=== PATIENT | male | born 1965 | race African-American/Black ===

== ENCOUNTER 2020-02-17 14:08 | Outpatient (CLI) | payer BC, SELFPAY ==
--- NOTE | ~2020-02-17 | XR_ITS ---
EXAMINATION: XR chest 2V DATE: 02/17/2020 15:31 INDICATION: Prediabetic with prostate cancer for preoperative evaluation. TECHNIQUE: PA and lateral views of the chest were obtained. COMPARISON: None FINDINGS: The lungs are clear with no focal airspace opacities, pulmonary edema, pleural effusion or pneumothor ax. The cardiomediastinal silhouette is normal. Mild anterior wedging of a few mid thoracic vertebral bodies. Mild thoracic spondylosis. IMPRESSION: 1. No acute cardiopulmonary disease. Reviewed, dictated and finalized at location A.
--- NOTE | 2020-02-17 15:04 | ECG_ITS ---
Measurements Intervals [place] Rate: 66 P: 49 MN: 182 QRS: 48 QRSD: 85 T: 27 QT: 359 QTc: 377 Interpretive Statements SINUS RHYTHM DELAYED PRECORDIAL R/S TRANSITION BASELINE ARTIFACT- I, II, III, AVL, AVF BORDERLINE ECG Electronically Signed On 02-17-2020 19:32:16 CDT by Donnell Moraes D.O.
[2020-02-17 15:35] LABS: Basophils Absolute Auto 0.1 K/mm3 (0.0-0.1); Basophils Percent Auto 0.6 % (0.2-1.2); Eosinophils Absolute Auto 0.1 K/mm3 (0-0.3); Eosinophils Percent Auto 1.4 % (0-4.4); Hematocrit 38.2 % (42.0-52.0); Hemoglobin 12.7 g/dL (14.0-18.0); Immature Granulocyte Absolute 0.02 K/mm3 (0.00-0.031); Immature Granulocyte Percent A 0.2 % (0-0.5); Lymphocytes Absolute Auto 2.19 K/mm3 (0.9-3.2); Lymphocytes Percent Auto 26.9 % (18.3-44.2); Mean Corpuscular HGB Conc 33.2 g/dl (32-36); Mean Corpuscular Hemoglobin 23.5 pg (26-34); Mean Corpuscular Volume 70.6 fl (80-100); Mean Platelet Volume 10.6 fl (7.4-10.4); Monocytes Absolute Auto 0.9 K/mm3 (0.1-0.6); Monocytes Percent Auto 11.1 % (2.6-8.5); Neutrophils Absolute Auto 4.9 K/mm3 (1.3-6.7); Neutrophils Percent Auto 59.8 % (45.5-73.1); Platelet Count Result 263 k/mm3 (150-375); Red Blood Count 5.41 M/mm3 (4.6-6.20); Red Cell Distribution Width 15.3 % (11.5-14.5); White Blood Count 8.1 K/mm3 (4.5-10.0)
[2020-02-17 15:41] LABS: Add Urine Microscopic? YES; Appearance Urine Clear (Clear); Bilirubin Urine Negative (Negative); Blood Urine Negative (Negative); Color Urine Yellow (Yellow); Glucose Urine UA Negative (Negative); Ketones Urine Negative (Negative); Leukocyte Esterase Ur Negative LEU/UL (Negative); Mucus Urine Rare /lpf; Nitrate Urine Negative (Negative); Protein Urine 1+ mg/dL (Negative); Specific Grav Ur 1.027 (1.001-1.035); Squamous Epithelial Cell Urine Rare /hpf (Few); WBC Urine 0-3 /hpf
[2020-02-17 15:42] LABS: INR 1.1; Prothrombin Time 13.4 Seconds (11.1-14.7)
[2020-02-17 15:43] LABS: Partial Thromboplastin Time 29.5 SECONDS (22.3-36.8)
[2020-02-17 15:47] LABS: Alanine Aminotransferase 25 U/L (4-50); Albumin Level 4.5 g/dL (3.5-5.1); Alkaline Phosphatase 76 U/L (38-126); Anion Gap 8 mmol/L (8-16); Aspartate Amino Transferase 29 U/L (17-59); Bilirubin,Total 0.4 mg/dL (0.2-1.3); Blood Urea Nitrogen 13 mg/dL (9-20); Carbon Dioxide 30 mmol/L (22-30); Chloride 102 mmol/L (98-107); Estimated Glomerular Filt Rate > 60; Glucose 127 mg/dL (75-110); Potassium 3.8 mmol/L (3.4-5.0); Sodium 140 mmol/L (137-145)
== END 2020-02-17 14:09 | disposition home or self-care (01) ==
PROVIDERS: PCP Internal Medicine; Visit Provider Urology
DX: C61 Malignant neoplasm of prostate (principal); R94.31 Abnormal electrocardiogram [ECG] [EKG]
CPT/HCPCS: 36415; 71046; 80053; 81001; 85025; 85610; 85730; 86850; 86900; 86901; 93005

== ENCOUNTER 2020-02-28 03:15 | Outpatient (CLI) | payer BC, SELFPAY ==
[2020-02-28 18:37] LABS: SARS-CoV-2 RNA PCR Negative
== END 2020-02-28 03:16 | disposition home or self-care (01) ==
LOC: ANHCOVIDDT 03:15
PROVIDERS: PCP Internal Medicine; Visit Provider Urology
DX: Z01.812 Encounter for preprocedural laboratory examination (principal); Z20.828 Contact with and (suspected) exposure to other viral communicable diseases
CPT/HCPCS: 87635; C9803; U0003

== ENCOUNTER 2020-03-01 01:03 | Day surgery (SDC) | payer BC, SELFPAY ==
[2020-02-17 14:54] VITALS: BP 119/82; PULSE 74; RESP 16; TEMP 37; O2SAT 98; BMI 34.4
[2020-03-01] VITALS (14 sets, daily range): BP systolic 92–142; BP diastolic 48–82; PULSE 59–89; RESP 12–20; TEMP 35.9–36.9; O2SAT 97–100
--- NOTE | 2020-03-01 06:40 | P.PNAN_ITS ---
Anes - Initial Pre Proc Eval Procedure: Operation Date: 03/01/20 07:30 Proposed Procedures p Robotic Assisted Laparoscopic Prostatectomy With Bilateral Pelvic Lymph Node Dissection - Cj Gibbs MD Date/Time: 03/01/20 06:40 Surgeon: Cj Gibbs MD Pre Op Diagnosis: Prostate Ca Patient Data Age: 54 Gender: M Height: 5 ft 10 in Weight: 109.1 kg Last Vital Signs Temp 37.0 C 02/17/20 14:54 Pulse 74 02/17/20 14:54 Resp 16 02/17/20 14:54 BP 119/82 02/17/20 14:54 Pulse Ox 98 02/17/20 14:54 Allergies Allergy/AdvReac Type Severity Reaction Status Date / Time No Known Allergies Allergy Verified 02/17/20 14:26 Home Medications Medication Instructions Recorded Confirmed Type metformin 500 mg PO BID 02/17/20 02/17/20 History vitamin E 400 unit PO DAILY 02/17/20 02/17/20 History Patient hx anesthesia problems: none Family hx anesthesia problems: none [facility] Past Medical History Medical History (Updated 03/01/20 @ 06:40 by Panfilo Larios MD) Diabetes Obesity Prostate CA Surgical History Surgical History (Updated 03/01/20 @ 06:40 by Panfilo Larios MD) H/O arthroscopic knee surgery Social History Social History Smoking status: Never smoker Living arrangements: with family Spiritual care concerns: No Anes - Eval Final PreProcedure Day of Procedure 03/01/20 06:40 Patient weight: obese Heart: regular rate and rhythm Lungs: clear to auscultation Airway: Mallampati scale class III Neurological: alert and oriented Last oral intake: >/= 8 hours ASA classification: III Emergent: no Anesthetic plan: proceed Anesthesia type and monitoring: general ETT and standard monitoring Informed Consent: The patient's anesthetic plan and its attendant risks and benefits were discussed with the patient/family/POA. Questions were solicited and answers provided to the satisfaction of the patient/family/POA.
--- NOTE | 2020-03-01 06:41 | PM.IMHP ---
H&P: HPI History of Present Illness Date/Time: 03/01/20 06:41 Chief complaint: Prostate Ca Narrative: Mateus Cochran is a 54 year old male with Carlos 3+4=7 prostate cancer, last PSA 4.1 ng/mL. He has a family history of prostate cancer, his father was diagnosed in his mid 60 and is alive after treatment in his early 80s. He denies LUTS or other symptoms of prostate cancer. He denies abdominal surgeries in the past. Review of Systems Constitutional: Constitutional: Reports as per HPI and Reports no additional constitutional complaints Eyes: Eyes: Reports no additional eye complaints, Denies blind spots and Denies blurry vision ENT: Reports system reviewed and no additional complaints, except as documented and Reports Normal hearing present Cardiovascular: Cardiovascular: Reports no additional cardiovascular complaints Respiratory: Respiratory: Reports no additional respiratory complaints Gastrointestinal: Gastrointestinal: Reports no additional gastrointestinal complaints Genitourinary: Genitourinary: Reports no additional male genitourinary complaints Musculoskeletal: Musculoskeletal: Reports no additional musculoskeletal complaints Neurologic: Reports system reviewed and no additional complaints, except as documented Psychiatric: Psychiatric: Reports no additional psychiatric complaints Endocrine: Endocrine: Reports no additional endocrine complaints Hematologic/Lymphatic: Hematologic/Lymphatic: Reports no additional hematologic/lymphatic complaints Allergic/Immunologic: Allergic/Immunologic: Reports no additional allergic/immunologic complaints [facility] Past Medical History Medical History Diabetes Obesity Prostate CA Surgical History Surgical History H/O arthroscopic knee surgery Social History Social History Smoking status: Never smoker Living arrangements: with family Spiritual care concerns: No Meds Home Medications and Allergies Home Medications Medication Instructions Recorded Confirmed Type metformin 500 mg PO BID 02/17/20 02/17/20 History vitamin E 400 unit PO DAILY 02/17/20 02/17/20 History Allergies Allergy/AdvReac Type Severity Reaction Status Date / Time No Known Allergies Allergy Verified 02/17/20 14:26 Exam Const: General: cooperative, healthy appearing, comfortable, no acute distress, well developed, alert, awake and Physically active; No acute distress HENMT: Head: normal to inspection, normocephalic and atraumatic Ears: hearing grossly normal bilaterally General nose exam: Normal external nose present Face and sinus: normal facial exam Eyes: General: appearance normal, both eyes and all related structures Chest: Chest palpation & inspection: normal inspection of the chest Resp: Effort & Inspection: normal respiratory effort, able to speak in complete sentences, normal respiratory pattern and no audible wheezes GI: Inspection: normal to inspection and non-distended Neuro: General: oriented to person, oriented to place, oriented to time, patient oriented x3 and No gait normal Extrem: General: normal to inspection, full ROM and capillary refill normal Psych: Appearance: grossly normal, well kempt and not disheveled Assessment and Plan Assessment and plan (1) Prostate CA: Code(s): C61 - Malignant neoplasm of prostate Status: Acute Assessment and Plan: 54 year old man with Campo 3+4=7, Grade Group 2 3/12 cores with max of 80% involvement, PSA 4.1, and family history of prsotate cancer who presents for robot assisted laparoscopic radical prostatectomy. To OR for robot assisted laparoscopic radical prostatectomy and bilateral pelvic lymph node dissection. I have discussed the benefits, risks and alternatives with the patient. Specifically, we discussed attendant ri
[2020-03-01] MEDS: LACTATED RINGERS 1,000 ML 30 ML IV CONT ×2 (06:48→12:49)
[2020-03-01 07:01] LABS: Glucose Point of Care 84 (65-105)
[2020-03-01] MEDS: ceFAZolin 2 GM/D5W 50 ML 2 GM/50 ML BAG IVPB (07:28)
[2020-03-01] MEDS: ceFAZolin SODIUM 1 GM VIAL 2 GM IV PUSH (11:32)
--- NOTE | 2020-03-01 11:56 | PM.PROC ---
Procedure Note - Detailed Date of procedure: 03/01/20 Pre-op diagnosis: Prostate Ca Post-op diagnosis: same Procedure performed: 1. Robotic-assisted, bilateral nerve-sparing radical retropubic prostatectomy. 2. Bilateral n Description of procedure: The patient was brought to the operative suite, where he was prepped and draped in routine sterile fashion while in a dorsal lithotomy, deep Trendelenburg position. A supraumbilical 10 mm trocar was placed after insufflation of the abdomen with a Veress needle. Three robotic ports were then placed under direct vision. Two of these were placed in the right lower quadrant - 10 cm and 20 cm lateral to, and in line with, the umbilicus. A third robotic trocar was placed 10 cm to the left of the umbilicus, and 20 cm to the left of the umbilicus, a 12 mm standard laparoscopic trocar was placed to be used as an operations manager assistant port. Lastly, a 5 mm trocar was placed in the left upper quadrant midway between the umbilicus and the left robotic trocar. Attention was then turned to the prostatectomy. I opted for a posterior approach in this patient. An incision was made in the parietal peritoneum along the posterior bladder/posterior prostate about 2 cm above the reflection of the peritoneum over the anterior rectum. The seminal vesicles and vas deferens were immediately identified. Dissection is undertaken in a fashion so as to avoid electrocautery as much as possible, particularly near the tips of the seminal vesicles. Dissection was also carried out in the midline so as to avoid any encounters with the ureters. The vas deferens and the seminal vesicles were dissected in their entirety to the base of the prostate. The plane anterior to Denoviller's fascia, anterior to the rectum and posterior to the prostate was then developed. I then dropped the bladder by incising the anterior parietal peritoneum just lateral to the median umbilical ligaments bilaterally. The bladder was dropped from the anterior abdominal and pelvic wall. The endopelvic fascia was identified and incised bilaterally, allowing for dissection of the posterior-lateral aspect of the prostate. The puboprostatic ligaments were transected near their origin from the posterior pubic ramus. This posterior lateral dissection of the prostate is also undertaken in a fashion so as to avoid electrocautery as much as possible. The dorsal vein of the penis is then secured with an 0 -Vicryl ligature. Attention is then turned to the bladder neck. The anterior bladder neck is incised at the vesico-prostatic junction. The previously placed urethral catheter was drawn through the urethrotomy. A very small bladder neck was maintained throughout the remainder of this dissection. The posterior bladder neck was incised in a fashion so as to avoid any injury to the ureteral orifices. Again, the small aperture of the bladder neck was maintained. The previously dissected vas deferens and the seminal vesicles were brought through the posterior bladder neck incision. The lateral prostatic pedicles were then carefully dissected from the lateral aspect of the prostate bilaterally. The prostatic pedicles were secured with Weck clips and transected. The neurovascular bundles were carefully dissected from the posterior-lateral aspect of the prostate. The dorsal vein of the penis was incised with electrocautery. Using cold scissors, the urethra was incised. After withdrawing the previously placed urethral catheter, the posterior urethra was sharply incised, as was the rectalurethralis muscle. Attention was then turned to a bilateral pelvic lymphadenectomy. The limits of this dissection were similar bilaterally. Specifically, the limits were the bifurcation of the common iliac vein proximally, the inguinal ligament distally, the obturator nerve posteriorly and the anterior aspect to the external iliac vein laterally. This dissection was undertaken with care to avoid any injury to the obturator
[2020-03-01 12:56] LABS: Glucose Point of Care 143 (65-105)
--- NOTE | 2020-03-01 13:14 | SUR.PHASEI ---
Dr. Kumar to bedside to examine patient
[2020-03-01] MEDS: LACTATED RINGERS 1,000 ML 125 ML IV CONT ×2 (14:42→23:23)
[2020-03-01] MEDS: KETOROLAC 30 MG/ML VIAL (*BKC) IV PUSH (16:54)
[2020-03-01] MEDS: HYOSCYAMINE SULFATE 0.125 MG TABLET SUBLINGUAL (17:31)
[2020-03-01 17:54] LABS: Glucose Point of Care 137 (65-105)
[2020-03-01 20:51] LABS: Glucose Point of Care 151 (65-105)
[2020-03-02 02:00] VITALS: BP 121/58; PULSE 61; RESP 12; TEMP 36.8; O2SAT 99
[2020-03-02 03:53] VITALS: BP 121/65; PULSE 63; RESP 16; TEMP 37; O2SAT 99
[2020-03-02 05:36] LABS: Hematocrit 31.3 % (42.0-52.0); Hemoglobin 10.8 g/dL (14.0-18.0)
[2020-03-02 05:53] LABS: Anion Gap 7 mmol/L (8-16); Blood Urea Nitrogen 14 mg/dL (9-20); Calcium 8.3 mg/dL (8.4-10.2); Carbon Dioxide 26 mmol/L (22-30); Chloride 101 mmol/L (98-107); Estimated CRCL calculation 71 ml/min; Estimated Glomerular Filt Rate > 60; Glucose 126 mg/dL (75-110); Potassium 4.7 mmol/L (3.4-5.0); Sodium 134 mmol/L (137-145)
--- NOTE | 2020-03-02 07:00 | WPDUROPN2 ---
Progress Note: A&P Assessment and Plan (1) Prostate CA: Code(s): C61 - Malignant neoplasm of prostate Status: Acute Assessment and Plan: Doing well POD #1. Advance diet/activity. Likely home later today. Subjective Subjective Date/Time Seen: 03/02/20 07:00 RALP Thursday 03/01: - doing well; minimal discomfort Review of Systems Cardiovascular: Cardiovascular: Denies chest pain, Denies lightheadedness, Denies palpitations and Denies dyspnea Respiratory: Respiratory: Denies dyspnea Gastrointestinal: Gastrointestinal: Denies diarrhea, Denies nausea and Denies vomiting Genitourinary: Genitourinary: Denies hematuria and Denies dysuria Endocrine: Endocrine: Denies palpitations Exam Const: General: no acute distress Resp: Effort & Inspection: normal respiratory effort GI: Inspection: non-distended and incision (clean and dry) GI Palp: No abdominal tenderness and No Guarding due to palpation present (GI) Auscultation: normal bowel sounds and Hypoactive bowel sounds present Objective Data Vital Signs Vital Signs: Vital Signs - 24 hr 03/01/20 08:38 03/01/20 12:49 03/01/20 13:00 Temperature 97.3 F L 97.3 F L Pulse Rate 63 89 83 Respiratory Rate 18 16 13 Blood Pressure 137/82 124/65 117/66 Pulse Oximetry 100 99 100 03/01/20 13:15 03/01/20 13:30 03/01/20 13:45 Temperature Pulse Rate 80 76 75 Respiratory Rate 14 12 13 Blood Pressure 119/69 128/64 142/72 H Pulse Oximetry 100 100 100 03/01/20 14:00 03/01/20 14:20 03/01/20 14:35 Temperature 96.6 F L 96.8 F L Pulse Rate 77 60 62 Respiratory Rate 16 18 Blood Pressure 140/78 118/71 111/65 Pulse Oximetry 100 97 99 03/01/20 15:05 03/01/20 16:05 03/01/20 20:05 Temperature 96.6 F L 96.7 F L 98.4 F Pulse Rate 59 L 63 67 Respiratory Rate 20 18 12 Blood Pressure 128/71 119/74 119/67 Pulse Oximetry 99 99 98 03/01/20 21:00 03/01/20 21:06 03/02/20 02:00 Temperature 98.2 F Pulse Rate 61 Respiratory Rate 12 Blood Pressure 92/48 L 135/56 L 121/58 L Pulse Oximetry 99 03/02/20 03:53 Temperature 98.6 F Pulse Rate 63 Respiratory Rate 16 Blood Pressure 121/65 Pulse Oximetry 99 Intake/Output Intake/Output: Intake & Output 02/28/20 02/29/20 03/01/20 03/02/20 23:59 23:59 23:59 23:59 Intake Total 1590 1125 Output Total 500 2000 Balance 1090 -875 Meds/Results Medications: Active Medications Generic Name Dose Route Start Last Admin Trade Name Freq PRN Reason Stop Dose Admin Dextrose 12.5 gm 03/01/20 13:04 Dextrose 50% Syringe IV PUSH PRN PRN Hypoglycemia Protocol Glucagon 1 mg 03/01/20 13:04 Glucagon For Inj IM PRN PRN Hypoglycemia Protocol Glucose 15 gm 03/01/20 13:04 Glutose 15 PO PRN PRN Hypoglycemia Protocol Hyoscyamine 0.125 mg 03/01/20 14:08 03/01/20 17:31 Levsin Tablet SUBLINGUAL 0.125 mg Q4H PRN Administration Bladder Spasm Dextrose 1,000 mls @ 100 mls/hr 03/01/20 13:04 Dextrose 5% 1,000 Ml IVPB PRN PRN Hypoglycemia Protocol Lactated Ringer's 1,000 mls @ 125 mls/hr 03/01/20 14:08 03/02/20 05:00 Lr - Lactated Ringers Iv IV CONT 125 mls/hr .Q8H TYREL Infusion Acetaminophen 1,000 mg in 100 mls @ 400 mls/hr 03/01/20 15:00 03/02/20 02:42 Ofirmev 1,000 Mg Ivpb IVPB 03/02/20 15:01 Infused Q6H TYREL Infusion Insulin Aspart 2 - 5 units 03/01/20 17:00 03/01/20 17:31 Novolog SUB-Q Not Given TIDWM [facility] Protocol Ketorolac Tromethamine 30 mg 03/01/20 14:08 03/01/20 16:54 Toradol Inj IV PUSH 03/02/20 14:09 30 mg Q6H PRN Administration Pain Rated 4-6 Levofloxacin 500 mg 03/02/20 09:00 Levaquin Tab PO DAILY TYREL Naloxone HCl 0.1 mg 03/01/20 14:08 Narcan IV PUSH Q2M PRN Opiate Reversal Ondansetron HCl 4 mg 03/01/20 14:08 Zofran Inj IV PUSH Q6H PRN Nausea And Vomiting Labs Labs: Laboratory R
[2020-03-02] MEDS: LACTATED RINGERS 1,000 ML 125 ML IV CONT (07:16)
[2020-03-02 07:49] LABS: Glucose Point of Care 106 (65-105)
[2020-03-02 10:28] VITALS: BP 130/65; PULSE 73; RESP 14; TEMP 36.6; O2SAT 99
[2020-03-02 11:19] LABS: Glucose Point of Care 114 (65-105)
--- NOTE | 2020-03-02 11:48 | WPDANESPN ---
Anes - Prog Note Post-Op Date/Time: 03/02/20 11:48 Cardiovascular status: normal Respiratory status: normal Airway patency: baseline Mental status: baseline Post-Op hydration status: normal Vital Signs: Last Vital Signs Temp 36.6 C 03/02/20 10:28 Pulse 73 03/02/20 10:28 Resp 14 03/02/20 10:28 BP 130/65 03/02/20 10:28 Pulse Ox 99 03/02/20 10:28 Pain Score (VAS): 0/10. Patient resting in bed at time of assessment, appears comfortable. Pt expressed no additional concerns at time of assessment. I/O: Intake & Output 03/01/20 03/02/20 03/02/20 23:59 07:59 15:59 Intake Total 1190 1350 220 Output Total 400 2000 Balance 790 -650 220 Laboratory Tests 03/02/20 04:55 03/02/20 04:55 03/01/20 03/01/20 03/01/20 12:54 17:30 20:33 Hgb Hct Sodium Potassium Chloride Carbon Dioxide Anion Gap BUN Creatinine Estim Creat Clear Calc Estimated GFR Glucose POC Capillary Glucose 143 H 137 H 151 H Calcium 03/02/20 03/02/20 03/02/20 04:55 04:55 07:25 Hgb 10.8 L Hct 31.3 L Sodium 134 L Potassium 4.7 Chloride 101 Carbon Dioxide 26 Anion Gap 7 L BUN 14 Creatinine 1.30 Estim Creat Clear Calc 71 Estimated GFR > 60 Glucose 126 H POC Capillary Glucose 106 Calcium 8.3 L 03/02/20 11:18 Hgb Hct Sodium Potassium Chloride Carbon Dioxide Anion Gap BUN Creatinine Estim Creat Clear Calc Estimated GFR Glucose POC Capillary Glucose 114 H Calcium Post-procedural complaints: none Patient Feedback: Patient satisfied with anesthetic care.
--- NOTE | 2020-03-02 15:26 | PM.DS ---
DS: Admitting Diagnosis Admitting Diagnosis Admitting Diagnosis: Prostate Ca DS: Summary Time Spent with Patient Time attestation: Total time spent providing and/or coordinating discharge services: Exam Const: General: cooperative, healthy appearing, comfortable and no acute distress GI: Inspection: normal to inspection and incision (incisions c/d/i) : Male General Exam: Yes normal external exam Penis: Yes normal penis Meatus: meatus normal Urinary Catheter: Urinary Catheter: patent and draining and urine clear Skin: General skin exam: normal color and no rashes or lesions noted Neuro: General: oriented to person, oriented to place and oriented to time DS: Data Data Completed and Pending Pending studies at discharge: Pending at discharge 03/01/20 12:11 Surgical [PTH] Routine Labs on day of discharge: Labs from last 24 hours 03/02/20 11:18 POC Capillary Glucose 114 H Discharge Plan Discharge Patient Disposition: Home, Self-Care Discharge Instructions: 1) Chaney catheter -> leg bag / bedside bag at night. 2) No lifting/straining >15lbs. x3 weeks. 3) No driving x1-week. 4) Resume normal, pre-operative diet. 5) My office will contact regarding follow-up in 1-week with cystogram. Stand Alone Forms: General Discharge Instructions Discharge Orders: Discharge Order (Routine); Ordered 03/02/20 Ordered By: Kishor Kumar Discharge Medications: New hydrocodone-acetaminophen 5-325 mg tablet 1 - 2 tablet PO Q6H PRN (Reason: pain) Qty: 30 RF: 0 hyoscyamine sulfate 0.125 mg tablet 0.125 mg PO Q6H PRN (Reason: bladder spasms) Qty: 20 RF: 2 docusate sodium [Colace] 100 mg capsule 100 mg PO DAILY Qty: 30 RF: 0 levofloxacin [Levaquin] 500 mg tablet 500 mg PO DAILY Qty: 7 RF: 5 Continued metformin 500 mg tablet extended release 24 hr 500 mg PO BID RF: 0 Held vitamin E 400 unit Capsule 400 unit PO DAILY RF: 0 Hold Instructions: Resume on 03/07/20. Discharge Date/Time: 03/02/20 15:45
== END 2020-03-02 15:45 | disposition home or self-care (01) ==
LOC: ANHSURGERY 05:44 → ANH2MED 14:49
PROVIDERS: Urology; PCP Internal Medicine; Visit Provider Urology
PROC: 0VT04ZZ Resection of Prostate, Percutaneous Endoscopic Approach (ICD-10-PCS; CPT 55867; principal; 2020-03-01 07:30)
DX: C61 Malignant neoplasm of prostate (principal); E11.9 Type 2 diabetes mellitus without complications; Z79.4 Long term (current) use of insulin; Z79.899 Other long term (current) drug therapy; E66.9 Obesity, unspecified; Z68.34 Body mass index [BMI] 34.0-34.9, adult; Z80.42 Family history of malignant neoplasm of prostate
CPT/HCPCS: 55842; S2900; 36415; 80048; 85014; 85018; 88304; 88305; 88307; 88309; A9270; J0131; J0330; J0690; J1100; J1885; J2001; J2250; J2405; J2704; J2710; J3010; J7030; J7120; Q9968